=== PATIENT | male | born 1995 | race Caucasian/White ===

== ENCOUNTER 2020-11-21 19:17 | Inpatient (IN) | payer BC, OTHER ==
[~2020-11-21] VITALS: Ht 170.2 cm; Wt 112.0 kg
[2020-11-21 23:06] LABS: HEMOGLOBIN 15.3 gm/dl (14.0-17.5); RED BLOOD COUNT 4.99 M/UL (4.20-5.50)
[2020-11-21 23:12] LABS: BUN/CREATININE RATIO 11 (0-10)
[2020-11-23 04:42] LABS: HEMOGLOBIN 14.7 gm/dl (14.0-17.5); RED BLOOD COUNT 4.8 M/UL (4.20-5.50); WHITE BLOOD COUNT 10.1 K/UL (4.5-11.0)
[2020-11-23 04:50] LABS: BUN/CREATININE RATIO 11 (0-10)
--- NOTE | 2020-11-24 00:03 | NUR ---
troponin & CK-MB ELEVATED. TRENDING DOWN FROM PRIOR RESULTS
[2020-11-24 04:19] LABS: HIV SCREEN 4TH GENERATION WRFX Non Reactive (Non Reactive)
[2020-11-24 07:11] LABS: HBSAG SCREEN Negative (Negative); HEP A AB, IGM Negative (Negative); HEP B CORE AB, IGM Negative (Negative); HEP C VIRUS AB <0.1 (0.0-0.9)
[2020-11-24 07:51] LABS: HEMOGLOBIN 14.9 gm/dl (14.0-17.5); RED BLOOD COUNT 4.86 M/UL (4.20-5.50); WHITE BLOOD COUNT 10.9 K/UL (4.5-11.0)
[2020-11-24 08:42] LABS: BUN/CREATININE RATIO 11 (0-10)
[2020-11-25 22:07] LABS: COXSACKIE B-1 AB 1:32 (Neg:<1:8); COXSACKIE B-3 AB 1:32 (Neg:<1:8); COXSACKIE B-4 AB 1:32 (Neg:<1:8); COXSACKIE B-6 AB 1:32 (Neg:<1:8)
== END 2020-11-24 13:20 | disposition home or self-care (01) | DRG 287 ==
LOC: CCU 21:14
PROVIDERS: Internal Medicine; ADMIT Internal Medicine
PROC: 4A023N7 Measurement of Cardiac Sampling and Pressure, Left Heart, Percutaneous Approach (ICD-10-PCS; principal; 2020-11-22)
PROC: B211YZZ Fluoroscopy of Multiple Coronary Arteries using Other Contrast (ICD-10-PCS; 2020-11-22)
DX: I40.9 Acute myocarditis, unspecified (principal); E66.9 Obesity, unspecified; Z82.49 Family history of ischemic heart disease and other diseases of the circulatory system; E78.5 Hyperlipidemia, unspecified; Z20.822 Contact with and (suspected) exposure to COVID-19
CPT/HCPCS: ECHO; 0241U; 36415; 80048; 80053; 80061; 80074; 82550; 82553; 83036; 83516; 83735; 84439; 84443; 84484; 85025; 85027; 85610; 85652; 85730; 86140; 86256; 86644; 86665; 87389; 93005; 93306; 99152; 99153; C1769; C1887; J1644; J1650; J1885; J2250; J2270; J2405; J3010; J7030; J7040; Q9967